=== PATIENT | male | born 1965 | race Caucasian/White ===

== ENCOUNTER 2016-12-23 05:20 | Inpatient (IN) ==
[2016-12-19 17:58] LABS: Basophils # (Auto) 0 K/mcL (0.0-0.3); Basophils % (Auto) 0.5 % (0.0-2.0); Eosinophils # (Auto) 0.5 K/mcL (0.0-0.7); Eosinophils % (Auto) 5.5 % (0.0-7.0); Granulocytes % (Auto) 58.2 % (38.0-78.0); Lymphocytes # (Auto) 2.6 K/mcL (1.5-4.8); Lymphocytes % (Auto) 27.8 % (15.5-49.0); Mean Cell Volume 90.7 fL (80.0-100.0); Mean Corpuscular HGB Conc 34.1 g/dL (31.0-36.0); Mean Corpuscular Hemoglobin 30.9 pg (26.0-34.0); Monocytes # (Auto) 0.7 K/mcL (0.1-0.9); Platelet Count 221 K/mcL (140-440); RBC 5.17 M/mcL (4.50-5.90); Red Cell Distribution Width 13.4 % (11.5-14.5)
[2016-12-19 18:10] LABS: Appearance,Urine CLEAR; Bilirubin,Urine NEG (NEG); Color,Urine STRAW; Glucose,Urine (UA) NEGATIVE (NEG); Leukocyte Esterase,Urine NEG /uL (NEG); Nitrate,Urine NEG (NEG); Protein,Urine NEG (NEG); Specific Gravity,Urine 1.008 (1.000-1.035); Urine Blood NEG mg/dL (<0.03); Urobilinogen,Urine NEG (NEG)
[2016-12-19 18:19] LABS: Blood Urea Nitrogen 8 mg/dl (6-20)
[~2016-12-23 05:20] MED LIST: ACETAMINOPHEN 500 MG TABLET PO SCH; CELECOXIB 200 MG CAPSULE PO SCH; PREGABALIN 150 MG CAPSULE PO SCH; ceFAZolin 1 GM VIAL IV SCH; oxyCODONE 10 MG TAB.ER.12H PO SCH
[2016-12-23] MEDS ORDERED: KETOROLAC 30 MG, ROPIVACAINE HCL/PF 49.5 ML, EPINEPHrine 0.5 MG, 0.9 % SODIUM CHLORIDE ... IJ SCH (06:30)
[2016-12-23] MEDS ORDERED: IPRATROPIUM/ALBUTEROL 3 ML AMPUL.NEB NEB ONE (07:20)
[2016-12-23] MEDS ORDERED: PROPOFOL 200 MG/20 ML VIAL IV ONE (08:00)
[2016-12-23] MEDS ORDERED: PHENYLEPHRINE 10 MG/ML VIAL IV ONE (08:00)
[2016-12-23] MEDS ORDERED: ROPIVACAINE HCL/PF 20 ML VIAL IJ ONE (08:00)
[2016-12-23] MEDS ORDERED: ONDANSETRON 4 MG/2 ML VIAL IV ONE (08:00)
[2016-12-23] MEDS ORDERED: ePHEDrine 50 MG/ML AMPUL IV ONE (08:00)
[2016-12-23] MEDS ORDERED: MIDAZOLAM 5 MG/5 ML VIAL IV ONE (08:00)
[2016-12-23] MEDS ORDERED: DEXAMETHASONE 10 MG/ML VIAL IV ONE (08:00)
[2016-12-23] MEDS ORDERED: KETAMINE 100 MG/ML ML IV ONE (08:00)
[2016-12-23] MEDS ORDERED: GLYCOPYRROLATE 0.2 MG/ML VIAL IV ONE (08:00)
[2016-12-23] MEDS ORDERED: LIDOCAINE HCL/PF 100 MG/5 ML SYRINGE IV ONE (08:00)
[2016-12-23] MEDS ORDERED: TRANEXAMIC ACID 1,000 MG/10 ML VIAL IV ONE ×2 (08:00→09:34)
[2016-12-23] MEDS ORDERED: GENTAMICIN SULFATE 800 MG/20 ML VIAL IR ONE (08:29)
[2016-12-23] MEDS ORDERED: FLUMAZENIL 0.1 MG/ML ML IV PRN (08:49)
[2016-12-23] MEDS ORDERED: METOPROLOL TARTRATE 5 MG/5 ML VIAL IV PRN (08:49)
[2016-12-23] MEDS ORDERED: ATROPINE SULFATE 0.4 MG/ML VIAL IV PRN (08:49)
[2016-12-23] MEDS ORDERED: MEPERIDINE 25 MG/ML SYRINGE IV PRN (08:49)
[2016-12-23] MEDS ORDERED: HYDROmorphone 2 MG/ML SYRINGE IV PRN ×2 (08:49→09:34)
[2016-12-23] MEDS ORDERED: ePHEDrine 50 MG/ML AMPUL IV PRN (08:49)
[2016-12-23] MEDS ORDERED: IPRATROPIUM/ALBUTEROL 3 ML AMPUL.NEB NEB PRN (08:49)
[2016-12-23] MEDS ORDERED: BENZOCAINE/MENTHOL 1 LOZENGE PO PRN ×2 (08:49→09:34)
[2016-12-23] MEDS ORDERED: diphenhydrAMINE 50 MG/ML VIAL IV PRN (08:49)
[2016-12-23] MEDS ORDERED: NALOXONE HCL 0.4 MG/ML VIAL IV PRN (08:49)
[2016-12-23] MEDS ORDERED: fentaNYL 100 MCG/2 ML VIAL IV PRN (08:49)
[2016-12-23] MEDS ORDERED: ONDANSETRON 4 MG/2 ML VIAL IV PRN ×2 (08:49→09:34)
[2016-12-23] MEDS ORDERED: METHOCARBAMOL 1,000 MG/10 ML VIAL IV PRN (08:49)
[2016-12-23] MEDS ORDERED: PROMETHAZINE 25 MG/ML VIAL IV PRN (08:49)
[2016-12-23] MEDS ORDERED: HYDROcodone/APAP 10/325MG TABLET PO PRN (09:34)
[2016-12-23] MEDS ORDERED: ACETAMINOPHEN 325 MG TABLET PO PRN (09:34)
[2016-12-23] MEDS ORDERED: MAGNESIUM HYDROXIDE 30 ML ORAL.SUSP PO PRN (09:34)
[2016-12-23] MEDS ORDERED: POLYETHYLENE GLYCOL 3350 17 GM PACKET PO PRN (09:34)
[2016-12-23] MEDS ORDERED: TEMAZEPAM 15 MG CAPSULE PO PRN (09:34)
[2016-12-23] MEDS ORDERED: FLEETS ADULT ENEMA PR PRN (09:34)
[2016-12-23] MEDS ORDERED: BISACODYL 10 MG SUPP.RECT PR PRN (09:34)
--- NOTE | 2016-12-23 09:34 | Brief Operative Note ---
Date of procedure: 12/23/16 Pre-op diagnosis: Right knee djd Post-op diagnosis: same Procedure: Right TKA higinio rebot Grafts/Implants: Yes Anesthesia: GETA Complications: none Complications Description: 12/23/16 09:33 none Surgeon: Mata Whitaker Computer Customer Support Specialist: Nilay Pastrana Estimated blood loss (cc): 50 Tourniquet Time (Minutes): 58 Specimens Removed/Pathology: none sent Condition: stable Disposition: PACU
[2016-12-23] MEDS ORDERED: IBUPROFEN 200 MG TABLET PO PRN (09:37)
--- NOTE | 2016-12-23 10:32 | XRay Report ---
CLINICAL INFORMATION: Postop total knee prostheses COMPARISON: None. FINDINGS: Total knee prostheses is anatomically aligned. There is no osseous abnormality. Soft tissue swelling seen - as expected. IMPRESSION: Negative Interpreted and Authenticated by: Fransisco Cam 12/23/16
--- NOTE | 2016-12-23 10:50 | Operative Note ---
DATE OF OPERATION: 12/23/2016 PREOPERATIVE DIAGNOSIS: A very pleasant 51-year-old with preop diagnosis of a right knee degenerative arthritis in all three compartments. POSTOPERATIVE DIAGNOSIS: A very pleasant 51-year-old with diagnosis of a right knee degenerative arthritis in all three compartments. PROCEDURE: Right robotic total knee using the ROBBY robot. SURGEON: Mata Whitaker M.D. JUNIOR FINANCIAL ANALYST: Nilay Pastrana PA-C. ANESTHESIA: General LMA anesthesia by Kizzy Parson CRNA. COMPLICATIONS: None. TOURNIQUET TIME: 58 minutes. DESCRIPTION OF PROCEDURE: The patient was brought to the operating room and put to sleep with general LMA anesthesia. Once asleep, the patient had the right leg sterilely prepped and draped in the usual sterile fashion and confirmed as the operative site. Preop antibiotics and tranexamic acid had been given. Once this was done, we then exsanguinated the leg and inflated to 250 pounds of pressure. A midline incision was made. A mid vastus approach created and then exposed the joint showing severe arthritis in all three compartments, mostly medial, with the severity with varus of about 6 degrees and 6 degrees of flexion contracture. Once this was registered, we registered the arrays above and below the knee. The medial and lateral joint lines were balanced. We registered the medial and lateral malleoli. Intraarticular pins were registered. Thirty points on the femur and tibia were registered. We then balanced the knee at 15, 30 and 90 degrees. Once perfectly balanced, we then brought the robot in, made the bony cuts and implanted the total knee. We preserved the PCL, removed the remnants of the meniscus, and balanced the knee perfectly. Once this was done, the patella measured 24 mm, and this was cut to 14. We implanted a 36 mm patellar button and then cemented in the above-mentioned sizes. A 9 mm poly was used. There were no complications. We closed the mid vastus approach with a #1 Stratafix x2. Skin was closed with 2-0 Vicryl and adhesive closure. Pins were removed. A sterile bandage applied. Nylon was used to close the arrays. RBH:[email or web address] Job ID: [id number] Doc ID: [id number] Mata Whitaker MD
[2016-12-23] MEDS ORDERED: TAMSULOSIN 0.4 MG CAPSULE PO ONE (11:48)
[2016-12-23] MEDS ORDERED: HYDROCHLOROTHIAZIDE 25 MG TABLET PO ONE (11:51)
[2016-12-23] MEDS: 0.45 % SODIUM CHLORIDE 1,000 ML IV SCH ×2 (12:00→22:50)
[2016-12-23] MEDS ORDERED: OMEPRAZOLE 20 MG CAPSULE PO ONE (12:45)
[2016-12-23] MEDS ORDERED: BUPRENORPHINE HCL 8 MG SL SCH (13:00)
[2016-12-23] MEDS: NICOTINE 21 MG PATCH TOPICAL SCH (13:38)
[2016-12-23] MEDS: KETOROLAC 15 MG/ML VIAL IV SCH ×3 (13:38→23:16)
[2016-12-23] MEDS: oxyCODONE/APAP 5/325MG TABLET PO PRN ×3 (13:39→23:11)
[2016-12-23] MEDS: 0.9 % SODIUM CHLORIDE 10 ML SYRINGE IV SCH ×2 (14:32→21:23)
[2016-12-23] MEDS: TAMSULOSIN 0.4 MG CAPSULE PO SCH ×3 (15:10→23:16)
[2016-12-23] MEDS: ceFAZolin 1 GM VIAL IV SCH ×2 (16:09→23:11)
[2016-12-23] MEDS ORDERED: clonazePAM 0.5 MG TABLET PO SCH (21:00)
[2016-12-23] MEDS ORDERED: BUPRENORPHINE HCL 8 MG PO SCH (21:00)
[2016-12-23] MEDS ORDERED: SENNOSIDES 1 TABLET PO SCH (21:00)
[2016-12-23] MEDS ORDERED: AMITRIPTYLINE 25 MG TABLET PO SCH (21:00)
[2016-12-23] MEDS: ASPIRIN 325 MG ENTERIC COATED TABLET PO SCH (21:21)
[2016-12-23] MEDS: LISINOPRIL 20 MG TABLET PO SCH (21:21)
[2016-12-23] MEDS: DOCUSATE SODIUM 100 MG CAPSULE PO SCH (21:22)
[2016-12-24] MEDS: oxyCODONE/APAP 5/325MG TABLET PO PRN ×2 (04:38→10:58)
[2016-12-24] MEDS ORDERED: BUPRENORPHINE HCL 8 MG PO SCH (05:30)
[2016-12-24] MEDS: KETOROLAC 15 MG/ML VIAL IV SCH ×2 (05:58→12:46)
[2016-12-24] MEDS: 0.9 % SODIUM CHLORIDE 10 ML SYRINGE IV SCH (05:58)
[2016-12-24] MEDS: 0.45 % SODIUM CHLORIDE 1,000 ML IV SCH (05:59)
[2016-12-24] MEDS ORDERED: OMEPRAZOLE 20 MG CAPSULE PO SCH (07:30)
--- NOTE | 2016-12-24 07:40 | Orthopedic Progress Note ---
Subjective Patient information: Note initiated : 12/24/16 at 7:39 am Service Date, if different from initiated Date: [] Patient: Brad Millan 51 y/o M admitted on 12/23/16 for Right Total Knee Arthroplasty with Elias Robot. Chief Complaint: [Pt is stable this morning on post operative day 1 without any significant concerns or complaints. Patients vital signs have remained stable. Patients dressing is dry and exhibits a grossly intact neurovascular and neuromotor exam. Patients 10 point ROS is otherwise negative. ] Objective Vital signs: Vital Signs Temp Pulse Resp BP Pulse Ox 12/24/16 07:27 98.1 F 20 143/83 91 12/24/16 04:00 97.4 F 76 20 113/65 93 12/24/16 00:00 98.4 F 76 18 122/72 95 12/23/16 21:00 92 12/23/16 20:00 98.6 F 103 H 20 124/72 92 12/23/16 17:00 97 12/23/16 15:45 98 F 18 132/66 97 12/23/16 13:45 121/66 97 12/23/16 13:34 97 12/23/16 12:45 164/93 96 12/23/16 12:15 144/90 98 12/23/16 11:45 146/89 98 12/23/16 11:30 142/89 98 12/23/16 11:15 130/86 95 12/23/16 11:00 96.9 F L 95 H 18 127/80 94 Intake and Output 12/23/16 12/24/16 12/24/16 21:59 05:59 13:59 Intake Total 2260 / 2260 400 / 400 Output Total 1979 330 / 330 Balance 280 / 280 70 / 70 Intake: Oral 2260 / 2260 400 / 400 Output: Void Amount 1979 330 / 330 Other: Meal Dinner Percent of Meal Consumed 100% Feeding Ability Independent # Voids 1 Weight 189 lb 8 oz Intake & Output: Intake & Output 12/23/16 12/24/16 12/24/16 21:59 05:59 13:59 Intake Total 2260 / 2260 400 / 400 Output Total 1979 330 / 330 Balance 280 / 280 70 / 70 Weight 189 lb 8 oz Intake: Oral 2260 / 2260 400 / 400 Output: Void Amount 1979 330 / 330 Other: Meal Dinner Percent of Meal Consumed 100% Feeding Ability Independent # Voids 1 Incision clean and dry: Yes Dressing: Yes clean, Yes dry Weight bearing status: full Neurological exam IM: Yes motor sensory intact, Yes neurovascular intact Extremities exam IM: Yes Foot pink and warm, Yes neurovascular intact - Labs CBC & BMP: 12/24/16 04:00 12/19/16 16:34 Labs: Orthopedic Labs 12/19/16 16:34 PT 11.7 L INR 0.8 L APTT 29 12/24/16 12/19/16 04:00 16:34 Hgb 16.0 Hct 38.1 L 46.9 Assessment and Plan (1) Hx of total knee arthroplasty The patient has been educated regarding dressing care, Physical Therapy recommendations, home exercises, restrictions, and follow up appointments. The patient has had all necessary DME prescribed. The patient has remained stable during their hospital course. The patient was discharge with a stable exam. Status: Acute
--- NOTE | 2016-12-24 07:42 | Discharge Summary ---
Ortho Discharge - TKA - Patient Instructions Diet: Regular Diet Activity: activity as tolerated, weight bearing as tolerated Total Knee Protocol: For Total Knee: Start ROM JOHAN with stationary bike or rocking chair. Work on gaining full extension of knee. Posterior dislocation precautions provided. Hip abductor strengthening and gait training instructions provided. Apply Cryocuff as instructed. Dressing Care: May shower in 2 days Patient Education: Total Knee Replacement (DC) Additional Instructions: CPM for home use - Problem Maintenance (1) Hx of total knee arthroplasty Status: Acute - Follow Up Plan Follow Up Appointments: Nilay Pastrana PA-C [Physician Ring Conductor] - 01/07/17 9:20 am Disposition: Home, Self-Care Prognosis: Good Rehab Potential: Good I certify that the patient requires SNF services: No Overall status at discharge: patient is progressing back to baseline - Orders For Discharge Prescriptions: Aspirin [Ecotrin] 325 mg PO BID #60 tab.ec Docusate Sodium [Colace] 100 mg PO BID #60 cap oxyCODONE/APAP [Percocet 5-325 mg] 1 - 2 tab PO Q4HP PRN #75 tab PRN Reason: Pain
[2016-12-24] MEDS ORDERED: HYDROCHLOROTHIAZIDE 25 MG TABLET PO SCH (09:00)
[2016-12-24] MEDS ORDERED: PREGABALIN 150 MG CAPSULE PO SCH (09:00)
[2016-12-24] MEDS ORDERED: FINASTERIDE 5 MG TABLET PO SCH (09:00)
[2016-12-24] MEDS: DOCUSATE SODIUM 100 MG CAPSULE PO SCH (10:01)
[2016-12-24] MEDS: TAMSULOSIN 0.4 MG CAPSULE PO SCH (10:02)
[2016-12-24] MEDS: ASPIRIN 325 MG ENTERIC COATED TABLET PO SCH (10:03)
[2016-12-24] MEDS: LISINOPRIL 20 MG TABLET PO SCH (10:04)
[2016-12-24] MEDS: NICOTINE 21 MG PATCH TOPICAL SCH (13:59)
== END 2016-12-24 14:42 | disposition home or self-care (01) | DRG 470 ==
LOC: MEDSUR 05:20
PROVIDERS: ADMIT Orthopaedic Surgery; ATTEND Orthopaedic Surgery